=== PATIENT | female | born 1985 | race Caucasian/White ===

== ENCOUNTER 2019-05-17 17:53 | Emergency (ER) | payer SELFPAY ==
[2019-05-17] MEDS ORDERED: HYDROcodone/Acetaminophen 10/325 mg Tablet ONE (18:21)
[2019-05-17] MEDS ORDERED: Ketorolac Tromethamine 30 MG/ML VIAL ONE (18:21)
[2019-05-17 18:45] LABS: Bilirubin Negative (Negative); Blood, Urine Large (Negative); Clarity Cloudy (Clear); Glucose, Urine (Dipstick) Negative (Negative); Leukocyte Negative (Negative); Nitrite Negative (Negative); Protein, Urine (Dipstick) Negative (Neg-Trace); Urobilinogen 0.2 mg/dL (Less than 2)
[2019-05-17 18:49] LABS: Bacteria/HPF 4+ HPF (None Seen); Broad Cast None Seen LPF (None Seen); Calcium Oxalate Crystals None Seen HPF (None Seen); Cellular Cast None Seen LPF (None Seen); Epithelial Cast None Seen LPF (None Seen); Fatty Cast None Seen LPF (None Seen); Mucous/LPF None Seen LPF (<2+); Other Casts None Seen LPF (None Seen); Oval Fat Bodies/HPF None Seen HPF (None Seen); Red Blood Cell Cast None Seen LPF (None Seen); Renal Epithelial None Seen HPF (None Seen); Sperm/HPF None Seen HPF (None Seen); Transitional Epithelial None Seen HPF (None Seen); Trichomonas/HPF None Seen HPF (None Seen); Triple Phosphate Crystal None Seen HPF (None Seen); Unclassified Crystals None Seen HPF (None Seen); Waxy Cast None Seen LPF (None Seen); White Blood Cell Cast None Seen LPF (None Seen); Yeast-Budding None Seen HPF (None Seen); Yeast-Hyphae None Seen HPF (None Seen)
[2019-05-17] MEDS ORDERED: Sulfameth/Trimethoprim DS 800-160mg TAB ONE (19:25)
[2019-05-17] MEDS ORDERED: Dicyclomine 20 MG TAB ONE (19:25)
== END 2019-05-17 19:42 | disposition home or self-care (01) ==
LOC: BURERS 17:53
DX: N13.2 Hydronephrosis with renal and ureteral calculous obstruction (principal); F17.210 Nicotine dependence, cigarettes, uncomplicated
CPT/HCPCS: 81003; 81015; 96372; 99283; J1885

== ENCOUNTER 2019-08-31 15:52 | Emergency (ER) | payer SELFPAY ==
--- NOTE | 2019-08-31 17:47 | RAD ---
LEFT ANKLE THREE VIEWS: Date: 08-31-2019 FINDINGS: A transverse fracture is seen through the lateral malleolus with no significant displacement. There i s expected overlying soft tissue swelling. The ankle mortise appears intact. The other bony areas beckie und the ankle showed no fracture. IMPRESSION: Nondisplaced fracture of the lateral malleolus. POS: HOME
--- NOTE | 2019-08-31 17:49 | RAD ---
LEFT FOOT THREE VIEWS: Date: 08-31-2019 FINDINGS: No fracture was seen. No periosteal reaction was present. The bones and joints showed no acute change s. IMPRESSION: No acute fractures in the foot. See ankle report for further information. POS: HOME
== END 2019-08-31 17:15 | disposition home or self-care (01) ==
LOC: BURERS 15:52
DX: S82.65XA Nondisplaced fracture of lateral malleolus of left fibula, initial encounter for closed fracture (principal); F17.210 Nicotine dependence, cigarettes, uncomplicated; V87.8XXA Person injured in other specified noncollision transport accidents involving motor vehicle (traffic), initial encounter

== ENCOUNTER 2022-11-19 16:56 | Emergency (ER) | payer OTHER, SELFPAY | END 2022-11-19 17:53 | disposition home or self-care (01) | LOC: BURERS 16:56 | DX: S53.401A Unspecified sprain of right elbow, initial encounter (principal); F17.290 Nicotine dependence, other tobacco product, uncomplicated; X50.1XXA Overexertion from prolonged static or awkward postures, initial encounter ==